=== PATIENT | male | born 1990 | race Caucasian/White ===

== ENCOUNTER 2018-11-27 18:10 | Emergency (ER) | payer MEDICAID ==
[~2018-11-27] VITALS: Ht 172.7 cm; Wt 81.8 kg
[2018-11-27 18:18] VITALS: TEMP 100
[2018-11-27] MEDS ORDERED: AMOXICILLIN 50500 MG PO (18:59)
[2018-11-27] MEDS ORDERED: NORCO 325 MG-51 TAB PO (18:59)
[2018-11-27 19:04] VITALS: PULSE 71
[2018-11-27 19:40] VITALS: BP 124/89
== END 2018-11-27 19:40 | disposition home or self-care (01) ==
LOC: COL.ER 18:10
DX: K02.9 Dental caries, unspecified (principal); K04.7 Periapical abscess without sinus; F17.210 Nicotine dependence, cigarettes, uncomplicated; F12.90 Cannabis use, unspecified, uncomplicated

== ENCOUNTER 2019-03-03 09:51 | Emergency (ER) | payer OTHER ==
[~2019-03-03] VITALS: Ht 172.7 cm; Wt 84.1 kg
[~2019-03-03 09:51] MED LIST: AMOXICILLIN 50500 MG PO; NORCO 325 MG-51 TAB PO
[2019-03-03 10:02] VITALS: TEMP 97.3
[2019-03-03 10:30] LABS: BASO # 0.1 (0.0-0.2); BASO % 0.5 % (0.0-2.0); EOS # 0.3 (0.0-0.7); GRAN # 5.8 (1.4-6.5); GRAN % 57.2 % (42.2-75.2); HEMATOCRIT 45.6 % (42.0-52.0); HEMOGLOBIN 15.8 g/dl (13.5-18.0); LYMPH % 29.3 % (20.0-51.0); MEAN CELL VOLUME 83 fl (80.0-100.0); MEAN CORPUSCULAR HEMOGLOBIN 29 pg (27.0-31.0); MEAN CORPUSCULAR HGB CONC 35 g/dl (33.0-37.0); MEAN PLATELET VOLUME 10.4 fl (7.4-10.4); MONO % 9.3 % (1.7-9.3); PLATELET COUNT 233 K/mm3 (130-400); RED BLOOD COUNT 5.53 M/mm3 (4.20-5.60); REDCELL DISTRIBUTION WIDTH-CV 12.8 % (11.5-14.5)
[2019-03-03 10:35] LABS: ALBUMIN 4.1 gm/dL (3.5-5.0); BILIRUBIN,TOTAL 0.2 mg/dL (0.0-1.0); CALCIUM 9.2 mg/dL (8.4-10.2); CREATININE, serum 1.12 (0.66-1.25); POTASSIUM 3.5 mmol/L (3.4-5.0); TOTAL PROTEIN 6.4 gm/dL (6.4-8.2)
[2019-03-03 10:39] LABS: COLLECTION METHOD CLEAN CATCH
[2019-03-03 11:04] LABS: AMORPHOUS CRYSTAL Present /uL; PH 7 (5-8); SQUAMOUS EPITHELIAL None Seen /hpf; URINE APPEARANCE Cloudy; URINE BACTERIA Rare /hpf; URINE BILIRUBIN Negative (NEGATIVE); URINE BLOOD 2+ (NEGATIVE); URINE COLOR Yellow; URINE GLUCOSE Negative (NEGATIVE); URINE KETONE Negative (NEGATIVE); URINE LEUKOCYTE ESTERASE Negative (NEGATIVE); URINE NITRATE Negative (NEGATIVE); URINE PROTEIN(semi-quant) Negative (NEGATIVE); URINE RBC >50 /hpf; URINE UROBILINOGEN Negative (NEGATIVE)
[2019-03-03] MEDS ORDERED: ZOFRAN 4MG T4 MG/TAB PO (12:08)
[2019-03-03] MEDS ORDERED: NORCO 325 MG-51 TAB PO (12:08)
[2019-03-03 12:31] VITALS: BP 101/62; PULSE 69
== END 2019-03-03 12:32 | disposition home or self-care (01) ==
LOC: COL.ER 09:51
PROVIDERS: Emergency Medicine
DX: N20.1 Calculus of ureter (principal); N23 Unspecified renal colic
CPT/HCPCS: J1170; J1885; J2405; J7030; Q9967

== ENCOUNTER 2020-04-24 23:14 | Emergency (ER) | payer MEDICAID ==
[~2020-04-24] VITALS: Ht 172.7 cm; Wt 81.8 kg
[~2020-04-24 23:14] MED LIST changes: +ZOFRAN 4MG T4 MG/TAB PO
[2020-04-24 23:21] VITALS: BP 142/82; TEMP 98.8
[2020-04-25] MEDS ORDERED: CRUTCHES MC (02:08)
[2020-04-25 02:41] VITALS: PULSE 87
== END 2020-04-25 02:45 | disposition home or self-care (01) ==
LOC: COL.ER 23:14
DX: S93.602A Unspecified sprain of left foot, initial encounter (principal); F17.210 Nicotine dependence, cigarettes, uncomplicated; X50.1XXA Overexertion from prolonged static or awkward postures, initial encounter; Y92.009 Unspecified place in unspecified non-institutional (private) residence as the place of occurrence of the external cause